=== PATIENT | female | born 1990 | race Caucasian/White ===

== ENCOUNTER → 2017-04-03 | Outpatient (CLI) | payer MEDICAID ==
[~2017-04-03] MED LIST: ANUS2.5C2 PR; COLA100C3 PO; MOM30SS PO; MOTR200T44 PO; TYLE325T5 PO
--- NOTE | 2017-04-03 14:42 | REP ---
Clinical: Anatomical evaluation. Comparison: 03/21/2015 . Findings: Examination demonstrates a single live intrauterine in cephalic presentation. motion is identified by technologist. Placenta is noted anterior and grade 0 without evidence for placenta previa or abruption. Amniotic fluid volume is normal. Cervix measures 4.4 cm in length and appears closed. No evidence for nuchal cord. Gestational age by current measurements 19 weeks 1 day with CAL 08/27/2017 . FHR equals 153 beats per minute. BPD 4.3 cm 19 weeks 0 days HC 16.3 cm 19 weeks 0 days AC 14.3 cm 19 weeks 4 days FL 3.1 cm 19 weeks 4 days HL 3.1 cm 20 weeks 1 day HC/AC ratio 1.14 Estimated weight 296 grams ( 60th percentile). Anatomical assessment demonstrates normal structures including cranium, choroid plexus, cavum, cerebellum/posterior fossa, facial features, lungs, four-chamber heart/ventricular outflow tracts, diaphragm, stomach, cord insertion/three-vessel cord, kidneys/bladder, spine, and extremities. Impression: Single live intrauterine in cephalic presentation. Anatomical assessment is complete and normal. No gross abnormalities are identified. Signed by Naga Hennessy MD 04/03/2017 02:33 P
== END ==
LOC: M SMT 13:10
PROVIDERS: ATTEND Advanced Practice Midwife
DX: Z36 Encounter for antenatal screening of mother (principal); Z3A.19 19 weeks gestation of pregnancy

== ENCOUNTER → 2017-06-06 | Outpatient (CLI) | payer MEDICAID ==
[~2017-06-06] MED LIST changes: -COLA100C3 PO; +COLA100C5 PO; +IBUP-1114 PO
[2017-06-06 18:55] LABS: MEAN CORPUSCULAR HEMOGLOBIN 30.9 pg (27.0-33.0); MEAN CORPUSCULAR HGB CONC 33.4 g/dl (32.0-36.5); MEAN CORPUSCULAR VOLUME 92.6 fl (80.0-96.0); RED CELL DISTRIBUTION WIDTH 12.6 % (11.5-14.5); WHITE BLOOD COUNT 10.2 K/mm3 (4.0-10.0)
== END ==
LOC: M SMT 14:29
PROVIDERS: ATTEND Advanced Practice Midwife
DX: Z34.82 Encounter for supervision of other normal pregnancy, second trimester (principal)

== ENCOUNTER → 2017-07-04 | Outpatient (REF) | payer MEDICAID | LOC: M LAB REF 17:01 | PROVIDERS: ATTEND Obstetrics & Gynecology | DX: Z34.82 Encounter for supervision of other normal pregnancy, second trimester (principal) ==

== ENCOUNTER → 2017-08-04 | Outpatient (REF) | payer MEDICAID | LOC: M LAB REF 17:12 | PROVIDERS: ATTEND Specialist | DX: Z34.83 Encounter for supervision of other normal pregnancy, third trimester (principal) ==

== ENCOUNTER 2017-08-17 04:04 | Inpatient (IN) | payer MEDICAID ==
[~2017-08-17] VITALS: Ht 162.6 cm; Wt 78.5 kg
[2017-08-17] VITALS (8 sets, daily range): BP systolic 106–135; BP diastolic 60–87
[~2017-08-17 04:04] MED LIST changes: -IBUP-1114 PO
[2017-08-17] MEDS ORDERED: LACTATED RINGER'S 1000 ML IV STA (04:52)
[2017-08-17] MEDS ORDERED: PENICILLIN G POTASSIUM IV 5 MU in D5W MINI-BAG PLUS 100 ML IV STA (04:52)
[2017-08-17 05:11] LABS: MEAN CORPUSCULAR HEMOGLOBIN 28.9 pg (27.0-33.0); MEAN CORPUSCULAR HGB CONC 33.1 g/dl (32.0-36.5); MEAN CORPUSCULAR VOLUME 87.3 fl (80.0-96.0); RED CELL DISTRIBUTION WIDTH 13.3 % (11.5-14.5); WHITE BLOOD COUNT 11.7 10^3/uL (4.0-10.0)
--- NOTE | 2017-08-17 05:23 | IPNPDOC ---
Text Note Date of Service The patient was seen on 08/17/17. NOTE HISTORY & PHYSICAL EXAMINATION DATE OF ADMISSION: 08/17/2017 27-year-old, 3, para 1011, at 37-5/7 weeks gestation with reports of spontaneous rupture of membranes for large amounts of clear fluid at 0230. Last normal menstrual period 11/16/2016 for initial CAL of 08/23/2017. A sonogram on January 11 at 6 weeks 4 days confirmed the date of 09/02/2017. Upon evaluation, she is 4 cm, 80 % effaced, 0 station. She reports active movement. Prepregnancy weight was 145. Total weight gain 29 pounds. She has been normotensive through the . Last office visit was at 37 weeks 4 days on August 16. has been uncomplicated with appropriate care.Anatomy scan within normal limits. OB HISTORY: March 2014. Normal spontaneous vaginal at 39 weeks, viable male child, 8 lbs. 2 oz. March 2015, early miscarriage. ALLERGIES: None. MEDICAL/SURGICAL HISTORY: Noncontributory FAMILY HISTORY: Diabetes and epilepsy. SOCIAL HISTORY: Engaged. Father of the baby, Naga is present and supportive. Denies tobacco, alcohol or drugs. Denies history of sexually transmitted infections. OBJECTIVE: Labs are O+, antibody negative. Last Pap 2013, normal. Initial hemoglobin and hematocrit 13.1 and 37.9 with platelets of 238. Rubella immune. VDRL, hepatitis B, hepatitis C, HIV, gonorrhea, chlamydia all negative. One-hour glucose was 88 , repeat hemoglobin and hematocrit 11.6 and 34.7 with platelets of 191. Group B strep is positive. Vital signs are stable. She is in no apparent distress, coping well. Breathing with contractions. Breast exam was deferred. Abdomen is soft, nontender, gravid, longitudinal lie, vertex by Matthew. Contractions 2-4 minutes apart, 45- 60 seconds, moderate to palpation. heart 145, moderate variability with accelerations, category 1 tracing. Sterile vaginal exam: 4 cm, 80 % effaced, 0 station, membranes grossly ruptured and cephalic confirmed . ASSESSMENT: 27-year-old, 3, para 1011, at 37 weeks 5 days gestation, in early labor with group B strep positive and grossly ruptured membranes. Category 1 tracing. PLAN: Admit. Group B strep prophylaxis. She plans to labor ad haley, consider Pitocin augmentation. Anticipate normal spontaneous vaginal . VS,Fishbone, I+O VS, Fishbone, I+O Vital Signs Date Time Temp Pulse Resp B/P (MAP) Pulse Ox O2 Delivery O2 Flow Rate FiO2 08/17/17 04:18 97.9 81 18 108/71 (83) Germania Cortes CNM Aug 17, 2017 05:23
[2017-08-17] MEDS ORDERED: OXYTOCIN 30 UNITS IN 0.9% NaCl 500ML IV BAG (J2590) As Ordered ONE (07:41)
[2017-08-17] MEDS ORDERED: OXYTOCIN DRIP 30 UNITS in APPROPRIATE DILUENT 1 EA IV SCH (07:59)
[2017-08-17] MEDS ORDERED: METHYLERGONOVINE MALEATE 0.2 MG TAB PO SCH (08:00)
[2017-08-17] MEDS ORDERED: MEASLES,MUMPS,RUBELLA VACCINE INJ (MMR-II) (90707) SC SCH (08:00)
[2017-08-17] MEDS ORDERED: LIDOCAINE 1% MDV INJ 50 ML VIAL INFIL ONE (08:00)
[2017-08-17] MEDS ORDERED: DOCUSATE SODIUM 100 MG CAP PO PRN (08:00)
[2017-08-17] MEDS ORDERED: DIBUCAINE 1% OINTMENT 30GM TOP PRN (08:00)
[2017-08-17] MEDS ORDERED: RHOGAM 300 MCG (1500 IU) INJ (J2790) IM SCH (08:00)
[2017-08-17] MEDS ORDERED: MOM 30ML SUSPENSION UDC PO PRN (08:00)
[2017-08-17] MEDS ORDERED: PENICILLIN G POTASSIUM IV 2.5 MU in D5W 100 ML IV SCH (09:00)
[2017-08-17] MEDS: PRENATAL VITAMINS CHEWABLE TABLET PO SCH (09:00)
--- NOTE | 2017-08-17 09:06 | IPNPDOC ---
Text Note Date of Service The patient was seen on 08/17/17. NOTE Delivery Note Date of Service 08/17/2017 27 year old 3, para 2012, spontaneous onset of labor at 37 weeks and 5 days. Spontaneous rupture of membranes, August 17 at 0230, clear, moderate amount. Utilized breathing and relaxation for labor coping. Fully dilated, 0720. Viable female delivered CORTEZ with out difficulty at 0732. Somersaulted through tight nuchal cord; presentation was compound with left posterior arm . Spontaneous respirations with stimulation. Transitioned on maternal abdomen. Cord doubly clamped and cut by father of the baby under my direction once pulsations ceased. scores 8 and 9. Placenta Bales intact with 3-vessel cord at 0738. Fundus firmed with massage and intravenous pitocin bolus. Estimated blood loss 300 mL. Perineum, cervix and vagina inspected. First-degree perineal laceration noted, repaired with 3-0 Vicryl Rapide. Sponge, sharp and instrument count correct. weight 7 pounds 8 ounces, 3390 grams. Parents are naming their daughterSaira. VS,Tongbone, I+O VS, Fishbone, I+O Laboratory Tests 08/17/17 04:56 Red Blood Count 4.09, Mean Corpuscular Volume 87.3, Mean Corpuscular Hemoglobin 28.9, Mean Corpuscular Hemoglobin Concent 33.1, Red Cell Distribution Width 13.3 Vital Signs Date Time Temp Pulse Resp B/P (MAP) Pulse Ox O2 Delivery O2 Flow Rate FiO2 08/17/17 05:54 98.3 18 08/17/17 04:18 81 108/71 (83) Germania Cortes CNM Aug 17, 2017 09:06
[2017-08-17] MEDS: METHYLERGONOVINE MALEATE 0.2 MG TAB PO SCH ×3 (11:30→22:27)
[2017-08-17] MEDS: ACETAMINOPHEN 500 MG TAB PO PRN (22:26)
[2017-08-18] MEDS: ACETAMINOPHEN 500 MG TAB PO PRN ×2 (05:29→15:29)
[2017-08-18] MEDS: METHYLERGONOVINE MALEATE 0.2 MG TAB PO SCH (05:29)
[2017-08-18 06:05] VITALS: BP 106/60
[2017-08-18] MEDS: PRENATAL VITAMINS CHEWABLE TABLET PO SCH (09:00)
[2017-08-18] MEDS ORDERED: METHYLERGONOVINE MALEATE 0.2 MG TAB PO PRN (11:00)
[2017-08-18 18:00] VITALS: BP_SYST 123; BP_SYST 99; BP_DIAS 52; BP_DIAS 61
[2017-08-18] MEDS: IBUPROFEN 800 MG TAB PO PRN (20:26)
[2017-08-19 05:39] VITALS: BP 96/52
[2017-08-19] MEDS: IBUPROFEN 800 MG TAB PO PRN (08:34)
[2017-08-19] MEDS ORDERED: IBUP-1114 PO (09:53)
== END 2017-08-19 10:30 | disposition home or self-care (01) | DRG 560 ==
LOC: M LDO 04:04 → M LDI 04:33 → M OBS 10:53
PROVIDERS: ADMIT Advanced Practice Midwife; ATTEND Advanced Practice Midwife
PROC: 10E0XZZ Delivery of Products of Conception, External Approach (ICD-10-PCS; principal; 2017-08-17)
PROC: 0HQ9XZZ Repair Perineum Skin, External Approach (ICD-10-PCS; 2017-08-17)
DX: O32.6XX0 Maternal care for compound presentation, not applicable or unspecified (principal); O69.89X0 Labor and delivery complicated by other cord complications, not applicable or unspecified; O70.0 First degree perineal laceration during delivery; Z37.0 Single live birth; Z3A.37 37 weeks gestation of pregnancy

== ENCOUNTER → 2019-12-24 | Outpatient (REF) | payer OTHER ==
[~2019-12-24] MED LIST changes: +IBUP-1114 PO
== END ==
LOC: M SFHCWAGY 12:37
PROVIDERS: ATTEND Advanced Practice Midwife
DX: Z01.419 Encounter for gynecological examination (general) (routine) without abnormal findings (principal)

== ENCOUNTER → 2020-04-14 | Outpatient (REF) | payer OTHER | LOC: M SFHCWAGY 17:55 | PROVIDERS: ATTEND Nurse Practitioner Women's Health | DX: N89.8 Other specified noninflammatory disorders of vagina (principal) ==

== ENCOUNTER → 2022-12-09 | Outpatient (REF) | payer OTHER | LOC: M SFHCWAGY 17:02 | PROVIDERS: ATTEND Nurse Practitioner Family | DX: Z12.4 Encounter for screening for malignant neoplasm of cervix (principal) ==

== ENCOUNTER → 2023-02-14 | Outpatient (CLI) | payer OTHER | LOC: M WHC 09:02 | PROVIDERS: ATTEND Nurse Practitioner Family | DX: N60.11 Diffuse cystic mastopathy of right breast (principal) ==

== ENCOUNTER → 2024-12-11 | Outpatient (REF) | payer OTHER | LOC: M SFHCWAGY 14:44 | PROVIDERS: ATTEND Nurse Practitioner Family | DX: N73.9 Female pelvic inflammatory disease, unspecified (principal) ==

== ENCOUNTER → 2025-02-13 | Outpatient (CLI) | payer OTHER | LOC: M WHC 13:57 | PROVIDERS: ATTEND Nurse Practitioner Family | DX: N92.0 Excessive and frequent menstruation with regular cycle (principal); R93.89 Abnormal findings on diagnostic imaging of other specified body structures ==